=== PATIENT | female | born 1945 | race Caucasian/White ===

== ENCOUNTER → 2023-02-15 10:36 | Outpatient (CLI) | payer MEDICARE, OTHER, SELFPAY ==
[2023-02-15 12:45] LABS: Add Manual Diff / Slide Review NO; Basophils Absolute Auto 0 /uL (0-100); Basophils Percent Auto 0.4 % (0-2); Eosinophils Absolute Auto 300 /uL (0-450); Eosinophils Percent Auto 4.2 % (2-4); Hematocrit 30.7 % (36-46); Hemoglobin 10.4 g/dL (12.0-16.0); Lymphocytes Absolute Auto 1100 /uL (1100-4500); Lymphocytes Percent Auto 12.9 % (25-40); Mean Corpuscular HGB Conc 33.8 % (30-36); Mean Corpuscular Hemoglobin 27.8 PG (26-34); Mean Corpuscular Volume 82.3 fL (80-100); Monocytes Absolute Auto 900 /uL (0-900); Monocytes Percent Auto 10.7 % (3-14); Neutrophils Absolute Auto 6000 /uL (1500-7000); Neutrophils Percent Auto 71.8 % (50-75); Platelet Count 414 X10^3/uL (150-400); Red Blood Cell Count 3.73 X10^6/uL (4.0-5.2); Red Cell Distribution Width 16.1 % (11.6-14.8); White Blood Cell Count 8.3 X10^3/uL (4.5-11.0)
[2023-02-15 13:09] LABS: BUN Creatinine Ratio 22.9 (6-22); Blood Urea Nitrogen 16 mg/dL (7-17); Calcium 8.5 mg/dL (8.4-10.2); Carbon Dioxide 25 mmol/L (22-32); Chloride 103 mmol/L (98-107); Estimated Glomerular Filt Rate > 60 mL/min (>60); Glucose 88 mg/dL (80-110); HEMOLYSIS < 15 (0-50); Potassium 4.3 mmol/L (3.4-5.1); Sodium 136 mmol/L (137-145)
[2023-02-15 14:53] LABS: Appearance Urine UA CLOUDY; Bilirubin Urine UA NEGATIVE (NEGATIVE); Color Urine UA YELLOW; Glucose Urine UA NEGATIVE (Negative); Ketones Urine UA TRACE (NEGATIVE); Leukocyte Esterase Urine UA 2+ (NEGATIVE); Nitrite Urine UA POSITIVE (Negative); Occult Blood Urine UA 2+ (Negative); Protein Urine UA 2+ (Negative); Urobilinogen Urine UA >=8.0 E.U./dL (0.2)
[2023-02-15 15:04] LABS: Bacteria Urine Many (>30); Culture Indicated Urine Specimen Cultured; RBC Urine 5-10/HPF (0-5/HPF); Squamous Epithelial Cell Urine 5-10 /HPF (0-5/HPF); WBC Urine 10-30/HPF (0-5/HPF)
== END ==
PROVIDERS: Referring Provider Orthopaedic Surgery; Visit Provider Orthopaedic Surgery
DX: Z01.818 Encounter for other preprocedural examination (principal); R73.9 Hyperglycemia, unspecified; Z01.812 Encounter for preprocedural laboratory examination; N39.0 Urinary tract infection, site not specified
CPT/HCPCS: 36415; 80048; 81001; 83036; 85025; 87077; 87086; 87186; 93005

== ENCOUNTER 2023-04-21 06:24 | Day surgery (SDC) | payer MEDICARE, OTHER, SELFPAY ==
[2023-04-14 12:07] VITALS: BMI 22.3
[2023-04-21] VITALS (14 sets, daily range): BP systolic 106–162; BP diastolic 51–67; PULSE 58–99; RESP 11–22; TEMP 35.8–36.6; O2SAT 95–100; BMI 22.3
--- NOTE | 2023-04-21 06:00 | DI.RAD.S_ITS ---
PROCEDURE: XR KNEE LT 1TO2V INDICATIONS: total left knee TECHNIQUE: 2 view(s) of the knee acquired. COMPARISON: None. FINDINGS: Bones: Patient is status post knee joint arthroplasty. Hardware components are in expected positions. Visualized bony structures are intact. Soft tissues: Overlying postoperative changes are noted. IMPRESSION: Postoperative changes of total left knee arthroplasty without complication. Dictated by: Mono Olivera M.D. on 04/21/2023 at 11:58 Approved by: Mono Olivera M.D. on 04/21/2023 at 11:58
[2023-04-21] MEDS: ACETAMINOPHEN 325 MG TABLET 975 MG PO (06:49)
[2023-04-21] MEDS: VANCOMYCIN 1,000 MG/200 ML PIGGYBACK 200 MG IV (06:49)
[2023-04-21] MEDS: LACTATED RINGERS 1,000 ML 42 ML IV ×2 (06:50→08:28)
--- NOTE | 2023-04-21 07:32 | PM.PREOP ---
Pre-operative Note Interval Note History & Physical reviewed/Exam performed by Physician: Yes Changes to H&P: No
--- NOTE | 2023-04-21 07:33 | PM.OP.1 ---
Operative Date/Time/Diagnoses Date of procedure: 04/21/23 Time of procedure: 07:33 Pre-op diagnosis: left knee OA Post-op diagnosis: same Procedure & Clinicians Procedure: Left total knee arthroplasty Same procedure as scheduled: Yes Indications: The patient has had progressively worsening left knee pain with radiographic changes consistent with arthritis. Non-operative management has failed and the patient has requested total knee replacement. The risks, benefits and alternatives to surgery were discussed with the patient prior to proceeding. Risks discussed included, but were not limited to, failure to relieve pain, stiffness, infection, nerve damage, deep venous thrombosis, pulmonary embolism, stroke, coma, heart attack, permanent paralysis and , as well as the potential need for eventual revision of the prosthetic. Surgeon: Nilda Rasmussen Environmental Management Specialist: José Manuel Cotto Anesthesia Type: General Operative Notes Findings: Severe left knee osteoarthritis, adequate bone, adequate range of motion Closure Type: primary Specimen(s): none sent Prosthetic devices, grafts, tissues, transplants, or devices: Rasmussen and nephew faith BCS 2 size 4 femur, size 3 tibia, +9 poly, 32 x 7-1/2 mm patella Estimated Blood Loss (mL): 250 Blood products transfused: none Tourniquet time (min): 71 Procedure in detail: The patient was seen in the pre-operative area, where the patient identified the left knee as the operative site and this was marked with my initials. The patient received pre-operative antibiotics, and was taken to the operating room and placed on the operative table in the supine position. After satisfactory anesthesia, a full time babysitter out was performed. The left leg was encircled with a tourniquet about the proximal thigh, and the leg was prepared from the toes to the tourniquet with ChloroPrep in the usual fashion and draped through sterile drapes. The leg was elevated and exsanguinated with Eschmark bandage and the tourniquet inflated to [250] mmHg pressure. A PA was used during the procedure and was essential for intraoperative retraction. They were also helpful for establishing hemostasis. The knee was approached through an approximately 18 cm incision centered over the patella and carried into the knee through a medial parapatellar arthrotomy. A portion of the medial and lateral meniscus was resected. Soft tissue was carefully mobilized around the patella the patella was measured with a caliper. Bone was resected from the patella and the patellar height was reconstituted with up an appropriate sized patellar component. A cover was then placed on the patella. A small amount of additional medial and lateral meniscus was resected. The distal femur was cut at 5?. A [+2] cut was used. It looked like an appropriate distal femoral cut and the cut was made without difficulty. An extramedullary guide was used for the tibial cut. 10 mm was resected off the least affected side.The tibia was prepared. The rotation was assessed. The patient was placed in extension residual medial and lateral meniscus as well as any residual bone was carefully resected. [No] additional tibia was resected. Hemostasis was achieved especially posteriorly. Additional local was injected into the posterior capsule. The extension gap was assessed and additional releases for gap balancing were performed as necessary. It was checked with the gap ecommerce manager. The femoral component was trial was placed and the notch was finished. The rotation was assessed and the appropriate size femoral guide was placed on the distal femur and finishing cuts were made. There is no evidence of notching. The anterior, posterior and chamfer cuts were then made. The posterior osteophytes and soft tissues were then removed. The posterior capsule was injected with part of a mixture of 60 ml 0.25% Marcaine mixed with 20 ml Exparel for post operative pain control. The remainder of this mixture was injected into the capsule and subcutaneous tissues during cement curing.l tibial and femoral components were then placed and the knee placed through a range of motion. Range of motion was [0-130], with good stability throughout the range. The trials were then removed, and the tibia was finished. The bone was prepared with pulsatile lavage, and dried with a sponge. Cement was applied and the final prosthetics placed. Excess cement was removed during and after cement curing. A brief Betadine soak was performed. After confirming there was no extruded cement posteriorly, the final tibial insert was placed. The knee was copiously irrigated and the tourniquet deflated. Hemostasis was obtained with the Bovie cautery. A drain was placed and brought out superolaterally. The capsule was closed with interrupted nonabsorbable suture. The subcutaneous layer was closed with barbed sutures, and the skin with a running 3-0 V-Lock suture and Surgical glue. Skin adonis were also utilized in the superior aspect of the incision. An Aquacel Ag dressing was applied and the patient was taken to recovery having tolerated the procedure well. Complications: none Post-operative Condition: stable Disposition: Acute Care Plan for aftercare: The patient will be maintained on a standard total knee replacement protocol with weight bearing as tolerated. The patient will receive aspirin and sequential compression devices for DVT prophylaxis. The patient will be discharged home when safe for the home environment.
[2023-04-21] MEDS: TRANEXAMIC ACID 1,000 MG VIAL 1000 MG INJ ×2 (08:10→09:25)
[2023-04-21] MEDS: CEFAZOLIN 2 GM/100 ML PREMIX 100 ML IV ×3 (08:15→23:42)
--- NOTE | 2023-04-21 08:23 | SUR.OPER ---
Supine on padded OR bed. Pillow under head, arms secured on padded armboards <90 degree abduction. Safety belt across torso. Non-operative leg secured with tape over blanket over lower leg. Operative leg secured in DeMayo positioner. Foam padded brace at thigh of operative leg.
[2023-04-21] MEDS: BUPIVACAINE 0.25% (PF) 60 ML, EPINEPHrine 0.3 MG INJ (08:31)
[2023-04-21] MEDS: BUPIVACAINE LIPOSOME 266 MG/20 ML VIAL INJ (08:32)
[2023-04-21] MEDS: SODIUM CHLORIDE IRRIG SOLUTION 250 ML, POVIDONE-IODINE SPONGE STICKS 1 APPLIC IRR (08:33)
[2023-04-21] MEDS: HYDROMORPHONE 1 MG INJ IV ×3 (10:10→10:25)
[2023-04-21] MEDS: ONDANSETRON 4 MG/2 ML INJ IV (10:36)
[2023-04-21] MEDS: OXYCODONE IR 5 MG TABLET PO (10:36)
[2023-04-21] MEDS: LACTATED RINGERS 1,000 ML 100 ML IV ×2 (11:36→22:21)
--- NOTE | 2023-04-21 16:15 | OT.IPNOTE ---
Per nurse states pt resting and best to check on pt tomorrow for OT eval.
[2023-04-21] MEDS: ACETAMINOPHEN 325 MG TABLET 650 MG PO ×2 (16:55→23:43)
--- NOTE | 2023-04-21 17:16 | OT.IPNOTE ---
Per nursing pt is resting and best to check on pt tomorrow for OT eval.
--- NOTE | 2023-04-21 17:17 | PT.IIE ---
Current Diagnoses Unilateral primary osteoarthritis, left knee (04/21/23) Surgery Performed Operation Date: 04/21/23 07:45 Actual Procedures p Total Knee Arthroplasty(Left) - Nilda Rasmussne MD Surgical History (Last Updated 04/14/23 @ 13:14 by Thea Bautista, RN) History of ear surgery (2004) Hx of appendectomy Hx of bilateral cataract extraction Hx of cholecystectomy Medical History (Last Updated 04/14/23 @ 13:18 by Thea Bautista RN) Actinic keratosis Anxiety Asthma GERD (gastroesophageal reflux disease) Hearing loss HLD (hyperlipidemia) HTN (hypertension) Hypothyroidism Memory loss SOLO (obstructive sleep apnea) Osteoarthritis Paroxysmal A-fib Paroxysmal supraventricular tachycardia Seasonal allergies Skin cancer (2013) Vaginal prolapse Physical Therapy Inpatient Evaluation/Re-Eval M1 PT/OT-IP Prior Functional Status Start: 04/21/23 17:19 Freq: NEEDED Status: Active Protocol: Document 04/21/23 17:20 AB (Rec: 04/21/23 17:38 AB [id number]) Medical Review Prior Functional Status Medical History Reviewed Yes Communication Pt is able to express all needs. Mobility and Gait Pt reports she uses FWW for household and community distances. Activities of Daily Living and IADL's Pt is able to perform ADLs independently, but states she requires help from her and son for IADLs. Prior Functional Level (Other details) Pt reports she mostly takes sponge baths, and only showers when necessary but was able to do so on her own. Social History Household Members spouse,children Living Arrangements House Number of Floors (Floors) Two Floors Number of Stairs To Enter/Railing? no YANCY Home Environment Walk in Shower Home Equipment Front Wheel Walker,Mechanical Lift,Grab Bars Near Toilet, Grab Bars In Shower Additional Social History Comment Pt reports her busband and son can assist 24/7 if needed. M2 PT-IP Current Condition Start: 04/21/23 17:19 Freq: NEEDED Status: Active Protocol: Document 04/21/23 17:20 AB (Rec: 04/21/23 17:38 AB [id number]) Physical Therapy Current Condition Current Condition Evaluation Date 04/21/23 Treatment Diagnosis s/p left TKA Onset Date 04/21/23 M3 PT-IP Subjective Start: 04/21/23 17:19 Freq: NEEDED Status: Active Protocol: Document 04/21/23 17:20 AB (Rec: 04/21/23 17:38 AB [id number]) Subjective Physical Therapy Visit Type Type Initial Evaluation Visit Start Time 16:35 Visit Stop Time 17:17 Total Visit Minutes 32 Physical Therapy Visit Comments Patient Comments Pt presents semi supine in bed and is agreeable to PT evaluation this PM. Therapy Pain Assessment Pain When Pain Assessed At Rest Pain Present Pain Present Denied Pain M4 PT-IP Mobility and Gait Start: 04/21/23 17:19 Freq: NEEDED Status: Active Protocol: Document 04/21/23 17:20 AB (Rec: 04/21/23 17:38 AB [id number]) PT-Bed Mobility Assessment Rolling Type of Rolling Roll to Left Level of Assist Standby Assistance Supine to Sit Supine to Sit Standby Assistance Sit to Supine Sit to Supine Standby Assistance Scooting Scooting to Edge of Bed Standby Assistance PT-Transfer Assessment Sit to and From Stand Sit to and from Stand Standby Assistance,Use of Upper Extremities Equipment Transfer Assistive Device Gait Belt,Front Wheeled Walker Transfers Transfer Destination Bed,Chair Transfer Technique Stand Step Pivot Transfer Ability Level of Assist Standby Assistance Comments Mobility Comments The pt's BP in supine is 156/ 72 mmHg. She is able to perform bed mobility with SBA to get to EOB. Once sitting at EOB, the pt denies symptoms and BP is stable at 152/78 mmHg. She is able to perform STS with SBA and FWW, but is slow to rise due to weakness ( standing BP is 148/68) =. The pt then ambulated 10ft with FWW and SBA to chair, sat and rested, performed STS with SBA and FWW, and ambulated back to bed 10ft. The pt sat in bed to rest, while PT assisted to don new brief. The pt performs STS to allow PT to perform pericare, doff soild brief and don new brief. Pt then performs bed mobility for sit<>supine with SBA. At end of session, pt is semi supine in bed with all needs met and call light within reach. RN was notified of findings. Gait Assessment Gait Gait Assistance Required: Standby Assistance Distance (Feet) 10 Assistive Devices Assistive Device Gait Belt,Front Wheeled Walker Gait Deviations General Gait Pattern Antalgic,Decreased Stride Length,Decreased Feet Clearance,Flexed Trunk Factors Limiting Gait Function Factors Limiting Gait Function Decreased Activity Tolerance, Decreased Strength,Limited Range of Motion Comments Gait Comments The pt is able to ambulate 10ft with FWW and SBA. She demonstrates gait deviations consistent with surgical procedure, but also has flexed trunk which can shift her JENNIFER . No LOB or instability noted with these short bouts of ambulation. Stair Climbing Assessment Comments Stair Climbing Comments Not assessed today. PT-Balance Assessment Sitting Balance and Reactions Static Sitting Balance Ability Normal Dynamic Sitting Balance Ability Normal Standing Balance and Reactions Static Standing Balance Ability Good Dynamic Standing Balance Ability Good Device Used FWW M5 PT-IP Objective Assessments Start: 04/21/23 17:19 Freq: NEEDED Status: Active Protocol: Document 04/21/23 17:20 AB (Rec: 04/21/23 17:38 AB [id number]) Orientation Orientation/Cognition Level of Alertness Alert Orientation Name,Age,Birthday,Month,Date, Year,Day of Week,Place, Situation Language Function Ability No Deficits Noted Safety Awareness Understands Safety Issues Memory Description No Deficits Noted Gross Range of Motion Upper Extremity ROM Assessment Within Functional Limits Lower Extremity ROM Assessment Left Impaired Strength Upper Extremity Strength Assessment Within Functional Limits Lower Extremity Strength Assessment Left Impaired M6 PT-IP Treatment Start: 04/21/23 17:19 Freq: NEEDED Status: Active Protocol: Document 04/21/23 17:20 AB (Rec: 04/21/23 17:38 AB [id number]) Physical Therapy Treatment Education Education Provided Precautions,Weight Bearing Status,Post-Op Packet,Safety Brace Education Patient M7 PT-IP Assessment and Plan Start: 04/21/23 17:19 Freq: NEEDED Status: Active Protocol: Document 04/21/23 17:20 AB (Rec: 04/21/23 17:38 AB [id number]) PT Summary Assessment and Plan Potential Rehabilitation Potential Good Status of Condition at Evaluation Stable Summary Impairments Pain,ROM,Strength,Balance,Bed Mobility,Transfers,Gait, Activity Tolerance Assessment Summary Ximena Nascimento is an 78 year old female patient who is s/p left TKA performed on 04/21/23. The pt demonstrates impairments consistent with this surgical procedure including weakness, ROM deficits, and gait abnormalities. Today's PT examination revealed she currently requires SBA to perform all functional mobility. She was able to ambulate 10ft x2 with FWW and SBA, without imbalance or instability noted. Based on her current level of function, PT recommends discharge to home with assistance and outpatient PT. She would benefit from skilled PT during the course of her hospitalization to improve her post surgical outcomes and to improve to her highest level of function. Goals Bed Mobility Goal Independent Transfer Goal Independent,Front Wheeled Walker Gait Goal Standby Assistance,Front Wheel Walker Gait Distance 50 Other Goals Pt to be able to ambulate 50ft with FWW independently to show improving strength and endurance. Days to Meet Goals 5 Frequency of Treatment Frequency Of Treatment Twice a Day Treatment Plan Physical Therapy Treatment Plan Bed Mobility Training,Transfer Training,Gait Training, Therapeutic Exercise,Balance Retraining,Post Op Education, Discharge Planning,Hot or Cold Pack,Neuromuscular Re-ed, Coordination Retraining,Manual Therapy Other Recommendations and Next Treatment Longer ambulation Focus Weight Bearing Status Weight Bearing Status Weight Bear as Tolerated Recommendations To Nursing Amount of Assist Needed 1 Person Assist Discharge Recommendations PT Discharge Recommendations Home with Assistance, Outpatient PT Transportation Needs at Discharge Private Vehicle,Wheelchair/ Cabulance
[2023-04-21] MEDS: FLECAINIDE 100 MG TABLET PO (21:41)
[2023-04-21] MEDS: ATORVASTATIN 20 MG TABLET 10 MG PO (21:41)
[2023-04-21] MEDS: carvediloL 12.5 MG TABLET PO (21:41)
[2023-04-21] MEDS: ASPIRIN EC 81 MG TABLET PO (21:42)
[2023-04-22 00:25] VITALS: BP 125/58; PULSE 61; RESP 18; TEMP 36; O2SAT 100
[2023-04-22 05:06] VITALS: BP 125/61; PULSE 65; RESP 18; TEMP 36.4; O2SAT 98
[2023-04-22] MEDS: ACETAMINOPHEN 325 MG TABLET 650 MG PO ×2 (05:19→12:27)
[2023-04-22 06:08] LABS: Hematocrit 30.2 % (36-46)
--- NOTE | 2023-04-22 06:41 | PC.NURSE ---
rn shift mgr: Patient is AxOx4, VSS, O2 sat 99% on RA. Denies nausea, SOB, chest pain. Mild pain adequately controlled w/ scheduled Tylenol. OOB w/ 1 PA, gait belt & FWW to bathroom, tolerated ambulation fairly well. Able to turn self in bed. Left knee incision drsg covered w/ HOMER wrap, no drainage noted, CMS intact, although patient has neuropathy at baseline. SCDs are on. Refused 0600 Synthroid, patient states that she only takes it at 2200 at home and does not want to change her schedule. Fall precautions in place, call light within reach.
--- NOTE | 2023-04-22 07:04 | PM.DS.1 ---
History of Present Illness History of Present Illness Date Patient Seen: 04/22/23 Time Patient Seen: 07:05 Chief complaint: OPB Narrative: Operative Date/Time/Diagnoses Date of procedure: 04/21/23 Time of procedure: 07:33 Pre-op diagnosis: left knee OA Post-op diagnosis: same Procedure & Clinicians Procedure: Left total knee arthroplasty Same procedure as scheduled: Yes Indications: The patient has had progressively worsening left knee pain with radiographic changes consistent with arthritis. Non-operative management has failed and the patient has requested total knee replacement. The risks, benefits and alternatives to surgery were discussed with the patient prior to proceeding. Risks discussed included, but were not limited to, failure to relieve pain, stiffness, infection, nerve damage, deep venous thrombosis, pulmonary embolism, stroke, coma, heart attack, permanent paralysis and , as well as the potential need for eventual revision of the prosthetic. Surgeon: Nilda Rasmussen Equal Opportunity Director: José Manuel Cotto Anesthesia Type: General Operative Notes Findings: Severe left knee osteoarthritis, adequate bone, adequate range of motion Closure Type: primary Specimen(s): none sent Prosthetic devices, grafts, tissues, transplants, or devices: Rasmussen and nephew faith BCS 2 size 4 femur, size 3 tibia, +9 poly, 32 x 7-1/2 mm patella Estimated Blood Loss (mL): 250 Blood products transfused: none Tourniquet time (min): 71 Discharge Providers Provider Discharge Date: 04/22/23 Consults: 04/21/23 06:00 Consult to Anesthesiology Routine Comment: Consulting Provider: Anesthesiologist Reason for consultation: Regional block for post operative pain control 04/21/23 11:06 Consult to Discharge Planning Routine Comment: Consult to Occupational Therapy Evaluate & Treat Comment: Physician Instructions: Evaluate and treat Consult to Physical Therapy Evaluate & Treat Comment: Physician Instructions: postop TKA protocol Discharge provider: Kitty Rodriguez PA-C Summary Hospital Course Discharge Diagnosis: Left knee osteoarthritis, s/p left total knee arthroplasty Hospital Course: Ms Nascimento's hospital course was unremarkable. On the morning of POD#1, she was feeling well and wanted to go home. She was eating and voiding without difficulty and her pain was well-controlled with oral medication. She had not yet been evaluated by PT at the time of my visit but had been OOB. Exam Vital Signs (past 8 hours): - 04/22/23 00:25 04/22/23 05:06 Temperature 96.8 F L 97.6 F Pulse Rate 61 65 Respiratory Rate 18 18 Blood Pressure 125/58 L 125/61 Pulse Oximetry 100 98 Oxygen Flow Rate 0 0 Oxygen Delivery Method Room Air Oxygen Flow Rate 0 Narrative Exam Narrative: 5/5 strength in hip flexors, quadriceps, hamstrings, DF, PF. EHL on left. Sensation to light touch intact throughout LLE. Calf soft, compressible. HOMER wrap over Aquacel CDI. Objective Labs 04/22/23 05:55 Labs: Laboratory Results - last 24 hr 04/22/23 05:55 Hgb 10.0 L Hct 30.2 L PFSH Medical History (Updated 04/14/23 @ 13:18 by Thea Bautista RN) Hypothyroidism Vaginal prolapse Anxiety Seasonal allergies Skin cancer (2013) Memory loss Hearing loss GERD (gastroesophageal reflux disease) Asthma Actinic keratosis Osteoarthritis SOLO (obstructive sleep apnea) HLD (hyperlipidemia) HTN (hypertension) Paroxysmal A-fib Paroxysmal supraventricular tachycardia Surgical History (Updated 04/22/23 @ 07:15 by Kitty Rodriguez PA-C) Hx of bilateral cataract extraction History of ear surgery (2004) Hx of cholecystectomy Hx of appendectomy Social History household members: spouse and children Smoking Status: Former smoker alcohol intake: current Discharge Assessment & Plan Assessment and Plan Assessment: Left knee osteoarthritis, s/p left total knee arthroplasty Plan of Treatment: Discharge home, outpt PT, f/u in office as scheduled. Eliquis to restart tomorrow morning for VTE prophylaxis. Discharge Plan Discharge Plan Patient Disposition: Home Discharge orders & Medications Discharge Orders: Discharge (Order); Ordered 04/22/23 Ordered By: Kitty Rodriguez Prescriptions: New oxycodone 5 mg Tablet 5 mg PO Q4-6H PRN (Reason: Pain, Moderate (4-6)) Qty: 60 0RF docusate sodium 100 mg Capsule 100 mg PO BID PRN (Reason: constipation) Qty: 60 1RF Continued carvedilol 6.25 mg Tablet 12.5 mg PO BID Rx Instructions: must administer with a meal/food levothyroxine [Synthroid] 100 mcg Tablet 100 mcg PO DAILY simvastatin 20 mg Tablet 20 mg PO QPM flecainide 100 mg Tablet 100 mg PO BID Eliquis 5 mg Tablet 5 mg PO BID Discontinued hydrocodone-acetaminophen 5-325 mg Tablet 2 tab PO Q4H Follow up/Referrals: Nilda Rasmussen MD [Physician] - As previously scheduled (Follow up with Dr Rasmussen on 05/04/2023 @ 2:00 pm at [facility] in [place].) Diet/Activity/Treatments Diet: Diet as Tolerated Activity: Walk frequently! Cold/Heat Therapy: Ice to knee as needed for pain. Skin/Wound/Dressing Care Report to your healthcare provider any signs of infection, such as:: chills, fever, night sweats, unusual drainage and unusual redness Dressing: May remove HOMER wrap and shower on Tuesday, 04/24. Leave Aquacel dressing in place until follow up in office. No bathing or otherwise soaking incision. Call the office if the dressing becomes saturated inside. Visit Report/Discharge Packet Instructions: DI for Knee Replacement, DI for Prescription Opioid Use Stand Alone Forms: Patient Portal/API, Surgery Discharge Discharge Data Attending Provider: Nilda Rasmussen Quality VTE Deep Vein Thrombosis/Pulmonary Embolism Present on Admission: No
[2023-04-22 07:15] VITALS: BP 136/56; PULSE 59; RESP 18; TEMP 36.3; O2SAT 98
--- NOTE | 2023-04-22 08:30 | OT.IP.TRT ---
Addendum entered and electronically signed by Johana Méndez OT 04/22/23 09:30: esign Original Note: Current Diagnoses Unilateral primary osteoarthritis, left knee (04/21/23) Presence of unspecified artificial knee joint (04/21/23) Surgery Performed Operation Date: 04/21/23 07:45 Actual Procedures p Total Knee Arthroplasty(Left) - Nilda Rasmussen MD Occupational Therapy Treatment Note M2 OT-IP Current Condition Start: 04/22/23 09:15 Freq: Status: Active Protocol: Document 04/22/23 08:15 [facility] (Rec: 04/22/23 09:27 [facility] [id number]) Occupational Therapy Current Condition Current Condition Evaluation Date 04/22/23 Treatment Diagnosis S/P L TKA Diagnosis Onset Date 04/21/23 M3 OT- IP Subjective and Pain Start: 04/22/23 09:15 Freq: Status: Active Protocol: Document 04/22/23 08:15 [facility] (Rec: 04/22/23 09:27 [facility] [id number]) OT- Subjective Occupational Therapy Visit Type Type Initial Evaluation Visit Start Time 08:15 Visit Stop Time 08:30 Occupational Therapy Visit Comments Patient Comments Pt not wanting to get up at this time but agreed to talk to OT regarding OT needs. Patient/Caregiver Goals To go home. OT Pain Assessment Pain When Pain Assessed At Rest Pain Present Pain Present Pain Reported Location Left Knee Intensity 4 Scale Used Numeric (0 - 10) M4 OT- IP ADL's Start: 04/22/23 09:15 Freq: Status: Active Protocol: Document 04/22/23 08:15 [facility] (Rec: 04/22/23 09:27 [facility] [id number]) OT ZVS-Olcj-Xbiswum General Evaluation Self-Feeding Ability Independent OT ADL-Grooming General Evaluation Grooming Ability Independent OT ADL-Oral Care General Eval Oral Care Ability Independent OT ADL-Dressing Comments OT Dressing Comments Pt states her will assist with her socks and stockings. Pt educated to dress the left side first and take out last. OT ADL-Toileting Comments OT Toileting Comments Suggested use of wet ones for ease for hygiene and use of pads at night as pt gets up 1- 2 times at night. OT ADL-Bathing Comments OT Bathing Comments Pt states takes short showers with use of grab bars, suggested pt get a shower chair for safety. M5 OT- IP IADL's Start: 04/22/23 09:15 Freq: Status: Active Protocol: Document 04/22/23 08:15 [facility] (Rec: 04/22/23 09:27 [facility] [id number]) OT-Instrumental Activities of Daily Living Deficits IADL Deficits Identified Deficits Home Safety Awareness Awareness of Need for Assistance at Home Good Awareness Ability to Problem Solve Emergency Able to Problem Solve Situations Meal Preparation Meal Preparation Caregiver Provides Assist Hoisting Engineer Hoisting Engineer Caregiver Provides Assist M6 OT- IP Functional Cognition Start: 04/22/23 09:15 Freq: Status: Active Protocol: Document 04/22/23 08:15 [facility] (Rec: 04/22/23 09:27 [facility] [id number]) Cognitive Factors Limiting Selfcare Function Cognitive Ability Level of Alertness Alert Patient Orientation Name,Age,Birthday,Month,Date, Year,Day of Week,Place, Situation Attention Span Ability Capable of Focused Attention, Capable of Sustained Attention Ability to Follow Commands Able to Follow One Step Commands Cognitive Comments Cognitive Assessment Comments Pt able to follow commands and has good understanding for OT needs and equipment suggestions. OT- Vision and Hearing OT- Vision Assessment Visual Acuity Glasses All The Time M7 OT- IP Mobility and Balance Start: 04/22/23 09:15 Freq: Status: Active Protocol: Document 04/22/23 08:15 [facility] (Rec: 04/22/23 09:27 [facility] [id number]) OT- Bed Mobility Assessment Supine to Sit Supine to Sit Assist Standby Assistance OT-Transfer Assessment Comments Mobility Comments Pt just wanting to scoot up in bed at this time and not wanting to get up. Per nursing and PT noted pt is SBA with FWW. M9 OT- IP Assessment and Plan Start: 04/22/23 09:15 Freq: Status: Active Protocol: Document 04/22/23 08:15 [facility] (Rec: 04/22/23 09:27 [facility] [id number]) OT Summary Assessment and Plan Potential Rehabilitation Potential Good Analytic Complexity at Evaluation Low Summary OT Impairments Pain,Functional Mobility, Dressing,Toileting,Bathing, Toilet Transfers,Shower Transfers Progress Towards Goals Progressing Toward Goals Assessment Summary Pt low complexity and main barriers are pain and that her to assist her with LB dressing needs especially for her compression stocking. Goals Dressing Goal Independent Toileting Goal Independent Bathing Goal Independent Toilet Transfer Goal Independent Shower Transfer Goal Independent Days to Meet Goals 5 Frequency of Treatment Frequency Of Treatment Once a Day Treatment Plan OT Treatment Plan ADL Training,Functional Mobility,Patient/Family Education,Discharge Planning Discharge Recommendations OT Discharge Recommendations Home with Assistance, Outpatient PT Home Equipment Needs shower chair Transportation Needs at Discharge Private Vehicle
[2023-04-22] MEDS: DOCUSATE 100 MG CAPSULE PO (09:06)
[2023-04-22] MEDS: OXYCODONE IR 5 MG TABLET PO (09:07)
[2023-04-22] MEDS: ASPIRIN EC 81 MG TABLET PO (09:07)
[2023-04-22] MEDS: FLECAINIDE 100 MG TABLET PO (09:07)
[2023-04-22 10:06] VITALS: BP 136/56; PULSE 59
--- NOTE | 2023-04-22 10:26 | PT.IPTN ---
Current Diagnoses Unilateral primary osteoarthritis, left knee (04/21/23) Presence of unspecified artificial knee joint (04/21/23) Surgery Performed Operation Date: 04/21/23 07:45 Actual Procedures p Total Knee Arthroplasty(Left) - Nilda Rasmussen MD Physical Therapy Treatment Note M2 PT-IP Current Condition Start: 04/21/23 17:19 Freq: NEEDED Status: Active Protocol: Document 04/21/23 17:20 AB (Rec: 04/21/23 17:38 AB [id number]) Physical Therapy Current Condition Current Condition Evaluation Date 04/21/23 Treatment Diagnosis s/p left TKA Onset Date 04/21/23 M3 PT-IP Subjective Start: 04/21/23 17:19 Freq: NEEDED Status: Active Protocol: Document 04/22/23 10:48 TS (Rec: 04/22/23 11:02 TS [id number]) Subjective Physical Therapy Visit Type Type Treatment Note Visit Start Time 10:26 Visit Stop Time 10:44 Total Visit Minutes 18 Number of ACTIVITY DIRECTOR Visits 1 Physical Therapy Visit Comments Patient Comments Pt found resting in chair, reports pain is 8/10 with mobility, is agreeable to PT. M4 PT-IP Mobility and Gait Start: 04/21/23 17:19 Freq: NEEDED Status: Active Protocol: Document 04/22/23 10:48 TS (Rec: 04/22/23 11:02 TS [id number]) PT-Bed Mobility Assessment Sit to Supine Sit to Supine Standby Assistance Scooting Scooting Up and Down in Bed Standby Assistance PT-Transfer Assessment Sit to and From Stand Sit to and from Stand Contact Guard Assistance,1 Person Assistance,Use of Upper Extremities Equipment Transfer Assistive Device Gait Belt,Front Wheeled Walker Comments Mobility Comments Sit to stand from chair CGA with FWW, she demonstrated good carryover of sit to stand sequencing. She ambulated with slow step to gait ~50' in room SBA with heavy UE assist . Pt requested back to bed, sit to supine SBA with BUE support, she scooted to HOB with handrail assist SBA. Pt was educated on frequency and intensity of post-op exercises . Pt was left in bed, all needs met, RN notified. Gait Assessment Gait Gait Assistance Required: Standby Assistance Distance (Feet) 50 Assistive Devices Assistive Device Gait Belt,Front Wheeled Walker Gait Deviations General Gait Pattern Antalgic,Decreased Stride Length,Decreased Feet Clearance,Flexed Trunk Factors Limiting Gait Function Factors Limiting Gait Function Decreased Activity Tolerance, Decreased Strength,Limited Range of Motion Comments Gait Comments See mobility comments. PT-Balance Assessment Sitting Balance and Reactions Static Sitting Balance Ability Normal Dynamic Sitting Balance Ability Good Standing Balance and Reactions Static Standing Balance Ability Good Dynamic Standing Balance Ability Good Device Used FWW M5 PT-IP Objective Assessments Start: 04/21/23 17:19 Freq: NEEDED Status: Active Protocol: Document 04/21/23 17:20 AB (Rec: 04/21/23 17:38 AB [id number]) Orientation Orientation/Cognition Level of Alertness Alert Orientation Name,Age,Birthday,Month,Date, Year,Day of Week,Place, Situation Language Function Ability No Deficits Noted Safety Awareness Understands Safety Issues Memory Description No Deficits Noted Gross Range of Motion Upper Extremity ROM Assessment Within Functional Limits Lower Extremity ROM Assessment Left Impaired Strength Upper Extremity Strength Assessment Within Functional Limits Lower Extremity Strength Assessment Left Impaired M6 PT-IP Treatment Start: 04/21/23 17:19 Freq: NEEDED Status: Active Protocol: Document 04/22/23 10:48 TS (Rec: 04/22/23 11:02 TS [id number]) Physical Therapy Treatment Education Education Provided Precautions,Weight Bearing Status,Post-Op Packet,Safety M7 PT-IP Assessment and Plan Start: 04/21/23 17:19 Freq: NEEDED Status: Active Protocol: Document 04/22/23 10:48 TS (Rec: 04/22/23 11:02 TS [id number]) PT Summary Assessment and Plan Potential Rehabilitation Potential Good Summary Impairments Pain,ROM,Strength,Balance,Bed Mobility,Transfers,Gait, Activity Tolerance Progress Towards Goals Progressing Toward Goals Assessment Summary Ximena is making good progress with her mobility this session. She is CGA for sit to stand from low surface of chair with use of FWW. She progressed her ambulation to ~ 50' SBA with slow step to gait , she has no buckling or LOB. She performed bed mobility SBA with BUE support for repositioning in bed. She denied any SOB, dizziness or thermal changes. PT is recommending return home with assist and outpatient PT. Goals Bed Mobility Goal Independent Transfer Goal Independent,Front Wheeled Walker Gait Goal Standby Assistance,Front Wheel Walker Gait Distance 50 Other Goals Pt to be able to ambulate 50ft with FWW independently to show improving strength and endurance. Days to Meet Goals 5 Frequency of Treatment Frequency Of Treatment Twice a Day Treatment Plan Physical Therapy Treatment Plan Bed Mobility Training,Transfer Training,Gait Training, Therapeutic Exercise,Balance Retraining,Post Op Education, Discharge Planning,Hot or Cold Pack,Neuromuscular Re-ed, Coordination Retraining,Manual Therapy Other Recommendations and Next Treatment Continue gait, transfers, Focus assess carryover of post-op ex . Weight Bearing Status Weight Bearing Status Weight Bear as Tolerated Recommendations To Nursing Amount of Assist Needed 1 Person Assist Discharge Recommendations PT Discharge Recommendations Home with Assistance, Outpatient PT Transportation Needs at Discharge Private Vehicle
--- NOTE | 2023-04-22 11:11 | CM.DANOTE ---
Patient is an 78 yo female who was admitted on 04/21/23 for LTKA. Pt has [employer] and [employer] for insurance and her PCP is not listed. EMR was reviewed. Per Ortho MD, pt tolerated procedure well and her pain seems controlled, tolerating diet, and has voided and likely stable for discharge home today pending further PT. Per PT, recommending home with assist and outpt PT and will work with pt further this morning. SW met bedside with pt and explained role and she confirms she lives at home in [place] with her and her adult son. Pt is independent with ADLs and drives some still and has a FWW for use at home. Pt states spouse and son can assist as needed and pt denies hx of HH or SNF and states she has outpt PT already set up for next week. Pt states she feels somewhat groggy, likely from medications, and is starting to have more pain since her block is wearing off from surgery. Pt also states she is aware that she has started having a little bit of short term memory loss due to her age. Pt is agreeable with d/c to home today and states spouse will transport. Plan: SW to follow for further PT this morning to confirm plan of d/c to home via spouse POV today and outpt f/u and outpt PT. MOLLY Marquis Discharge Planning/Care Management CM Discharge Assessment Start: 04/22/23 11:09 Freq: Status: Active Protocol: Document 04/22/23 11:09 (Rec: 04/22/23 11:11 [id number]) Discharge Planning Assessment Assigned Supervisor Waterworks MOLLY Dey DPOA/Assigned Designee Name Spouse Or[place] Contact Information [phone] Advance Directives? No Advance Directives on File No History Provided By Patient,Family Member,Medical Record Has Patient been admitted in last 30 No days? Prior Living Arrangements House Household Members spouse,children Comment Spouse and adult son Type of transporation used prior to Relies on Others admit Independent with ADL's Yes Is patient alert and oriented? Yes: says she has some short term memory Needs Assistance With Home Chores / Shopping Caregiver for Another No Community Services used prior to Physical Therapy admission: DME Already Rented / Owned FWW / Walker Patient/Family Preference OP PT Therapy Barriers to Discharge No Discharge Plan Home Community Services Physical Therapy Transportation Arrangement Spouse plans to provide transport at d/c Referrals Initiated None needed Whiteboard Updated in Patient Room with Yes name and ext. # of Supervisor Waterworks Review Status In Process Please Provide Date Initial DC 04/22/23 Assessment Was Performed Next Review Type Continued Stay Review Pre-Anesthesia Assessment Start: 04/14/23 12:06 Freq: Status: Complete Protocol: Document 04/14/23 12:07 CAB (Rec: 04/14/23 13:35 CAB [id number]) Pre-Anesthesia Assessment PAC Comment Pt has memory loss, would be beneficial to have come back with patient to assit with admitting process Preferred Name Ximena Patient Information Reviewed Via Phone Assessment Assessment Completed With Patient Diagnostic Results BMP/CMP,CBC,Urinalysis Comment Labs/EKG@H 02/15/23-UA reflected E.coli-pt states no symptoms no treatment Primary Care Provider Jagruti Mares Seen Specialist in Last 12 Months Yes Specialist Seen Orthopedist Primary Language Pashto Training Project Manager Required No Height 162.56 cm Weight 58.967 kg Body Mass Index (BMI) 22.3 Hearing Ability Hearing Impaired,Use of Hearing Aid Visual Assist Glasses Dentition Type Teeth, Natural Present,Teeth, Missing Barriers to Learning Auditory,Memory Hx Anesthesia Reactions Yes: SOLO-No treatment, second physician said it is mild and CPAP not required Hx Family Anesthesia Reaction No Hx Malignant Hyperthermia No Hx Blood Transfusions No Anesthesia Review Requested No Publications Editor No alcohol intake current alcohol intake frequency a few times a week Smoking Status Former smoker how long ago did patient quit smoking Smoked in high school Substance Use Type does not use Pain Present Pain Reported Musculoskeletal Symptoms Abnormal Gait,Back Pain, Difficulty Walking,Joint Pain History of Falling (Recent or History of No ) Patient is completely paralyzed or No completely immobile Prosthesis or Orthotic Device Front Wheel Walker Mental Status Oriented to own ability Is patient on oxygen? No Does patient have CLEMENTS/SOB Yes: I've always had SOB Hx Sleep Apnea Yes: No treatment, second physician said it is mild and CPAP not required Currently Taking a Beta Rebeca Yes: Carvedilol Hx Chest Pain No Hx SOB Yes: I've always had SOB Hx Syncope or Dizziness No Anti-Coagulant Therapy Yes: Edson- Has a Mental Tester Yes: Last visit 10/12/[address] Ray @ [facility] Hx Pacemaker/ICD No Pacemaker Rep Required? No Comment Cardiac records scanned Additional comment Additional EKGs scanned for comparison to pre-op Diet Type At Home Regular Dysphagia No Gastrointestinal Symptoms Diarrhea,Reflux Urinary Catheter Present No Hx Urinary Self Catheterization No Diabetes No HgbA1C 5.0 Date 02/15/23 Patient No Lactating No Hx Drug Resistant Organism No Presence of External or Internal Medical Yes: Hearing aids, bilat eye Devices IOLs Received a COVID vaccine? Yes Received all doses? Yes Marital Status Lives With children Current Living Arrangements House Number of Floors (Floors) Two Floors Number of Stairs To Enter/Railing? 7 Support System Child/Children,Spouse Comment Son lives with pt and will assist with care at [place]. Daughter will also assist Does the Patient Have Assistance After Yes Surgery Patient Discharge Plan Description Return Home Comment Pt's states overnight length of stay per surgeon Feels Safe in Current Environment Yes Been Physically Hurt or Threatened By a No Person in Current Environment Do you have thoughts of harming yourself None or others? Are you currently considering suicide? No Do you have a plan to hurt yourself or No Plan others? Do You Have Any Spiritual Beliefs That No May Affect Your HC Choices? Do You Have Any Cultural Practices That No May Affect Your HC Choices? Comment Episcopalian Who Can We Speak to About Patient's Care Family, friends Identifying Code for Release of Patient Declines to issue Information Health Care Proxy/Next of Kin [place] () Health Care Proxy or [phone] Emergency Contact Name Orville () Emergency Contact or [phone] Advance Directives? No Power of Manager Legal No PAC Instructions Durable medical equipment, Medications to take/avoid, Nasal antibiotic,No ETOH/ petroleum product on skin DOS, NPO,Pre-surgical wash,Sensory aids,Sturdy shoes/comfortable clothes,Do not bring valuables and remove jewelry
[2023-04-22] MEDS: OXYCODONE IR 10 MG TABLET PO (12:27)
--- NOTE | 2023-04-22 17:07 | PC.NURSE ---
Patient is A&OX4. VSS, afebrile on RA. DBP this a.m. slightly low (50's) and HR 56 and so carvedilol medication held. Patient denies dizziness or lightheadedness. Dressing to knee is c/d/i. She is able to participate with PT and OT this a.m. and is cleared for discharge home with this afternoon. She expresses pain level severe after participating with PT today and she is medicated with prn 10 mg po oxycodone with improved effect. She states pain is still elevated at 5/10 but is much improved. She verbalizes understanding of site care, activity restrictions, medications, s/sx of infection/complication as well as follow up post op appointment in 2 weeks with ortho. at bedside is supportive.She is assisted to dress and escorted via w/ch to private vehicle with for discharge this evening at 1645.
--- NOTE | 2023-04-27 10:21 | PC.NURSE ---
Late entry. Per patient request for pain 12/27 and preparing for transport home she was medicated with 10 mg oxycodone at 1615 prior to discharge on 04/22/23 for pain to her L knee.
== END 2023-04-22 16:45 | disposition home or self-care (01) ==
LOC: OR 06:26 → AC 06:29
PROVIDERS: Referring Provider Orthopaedic Surgery; Visit Provider Orthopaedic Surgery
PROC: 0SRD0JZ Replacement of Left Knee Joint with Synthetic Substitute, Open Approach (ICD-10-PCS; CPT 27447; principal; 2023-04-21 07:45)
DX: M17.12 Unilateral primary osteoarthritis, left knee (principal); M25.762 Osteophyte, left knee
CPT/HCPCS: 27447; 73560; 85014; 85018; 97161; 97165; 97530; C1776; C9290; J0171; J0690; J1100; J1170; J2405; J2704

== ENCOUNTER 2024-02-21 13:44 | Day surgery (SDC) | payer MEDICARE, OTHER, SELFPAY ==
[2023-04-21 11:09] VITALS: BMI 22.3
[2024-02-15 15:43] VITALS: BMI 24.0
[2024-02-21 14:11] VITALS: BMI 24.5
[2024-02-21 14:15] VITALS: BP 198/84; PULSE 63; RESP 16; TEMP 37.3; O2SAT 98
[2024-02-21] MEDS: LACTATED RINGERS 1,000 ML 42 ML IV (14:26)
--- NOTE | 2024-02-21 14:36 | PM.PREOP ---
Pre-operative Note COVID-19 COVID-19 status: Not tested Interval Note History & Physical reviewed/Exam performed by Physician: Yes Changes to H&P: No ASA Class (for procedural sedation): III
[2024-02-21] MEDS: BUPIVACAINE 0.25% (PF) 30 ML, EPINEPHrine 0.15 MG INJ (15:42)
--- NOTE | 2024-02-21 15:54 | SUR.OPER ---
Supine on padded OR bed, head on pillow, arms secured on padded arm boards at side, legs uncrossed, safety belt across abdomen, blanket over lower legs.
--- NOTE | 2024-02-21 15:59 | PM.OP.1 ---
Operative Date/Time/Diagnoses Date of procedure: 02/21/24 Time of procedure: 15:59 Pre-op diagnosis: Left leg open wound Post-op diagnosis: same Procedure & Clinicians Procedure: Debridement of left leg wound Wound VAC placement of left leg Same procedure as scheduled: Yes Surgeon: Aleksandar Palacios Production Mechanic: Juan Raphael Anesthesia Type: MAC +/- Operative Notes Procedure in detail: The patient is an 78-year-old woman who presented with a left leg open wound. She [facility] [place] and by home nursing. The patient was brought to the operating room and placed on the table in the supine position. Monitored anesthesia was induced. The left leg was prepped and draped in the usual fashion. A time-out was performed. The wound measured 10 cm x 12 cm and 1 mm in depth. The wound demonstrated patchy areas of what appeared to be epithelialization. The epithelialized tissue was proximally 50% of the area. The rest of the tissue was relatively healthy-appearing granulation tissue. Using a curette we debrided the wound and removed any areas of slough or fibrin. There was 5 mm x 3 mm area of slough or fibrin towards the medial aspect of the wound over the medial aspect of the tibia. Once this was debrided it appeared that there was additional clot in the deeper tissue suggesting that this is the original site of the injury over the bone. We excised a small crescent of skin to allow access to the wanted tissue in the deeper wound. Finally, we applied the wound VAC. patient was awakened and brought to recovery room. EBL: 10 mL Post-operative Condition: stable Disposition: PACU
[2024-02-21 16:05] VITALS: BP 133/56; PULSE 57; RESP 12; TEMP 36.8; O2SAT 95
[2024-02-21 16:10] VITALS: BP 142/56; PULSE 54; RESP 11; O2SAT 97
[2024-02-21 16:15] VITALS: BP 145/63; PULSE 53; RESP 13; TEMP 36.8; O2SAT 97
[2024-02-21] MEDS: ACETAMINOPHEN 325 MG TABLET 650 MG PO (16:15)
[2024-02-21] MEDS: OXYCODONE IR 5 MG TABLET PO (16:15)
[2024-02-21 16:22] VITALS: BP 154/68; PULSE 54; RESP 12; TEMP 36.7; O2SAT 100
== END 2024-02-21 17:10 | disposition home or self-care (01) ==
PROVIDERS: PCP Physician Assistant Medical; Referring Provider Surgery; Visit Provider Surgery
PROC: (CPT 11042; principal; 2024-02-21 15:15)
DX: S81.801A Unspecified open wound, right lower leg, initial encounter (principal)
CPT/HCPCS: 11042; 97606; 11045; J0171; J2704; J3010